=== PATIENT | female | born 1950 | race Caucasian/White ===

== ENCOUNTER 2020-07-08 15:57 | Outpatient (REF) | payer MEDICARE, SELFPAY | END 2020-07-08 15:58 | disposition home or self-care (01) | LOC: HO.LAB 15:57 | PROVIDERS: Visit Provider Internal Medicine | DX: Z20.828 Contact with and (suspected) exposure to other viral communicable diseases (principal) | CPT/HCPCS: C9803; U0003 ==

== ENCOUNTER 2020-08-06 13:14 | Outpatient (REF) | payer MEDICARE, SELFPAY | END 2020-08-06 13:15 | disposition home or self-care (01) | LOC: HO.LAB 13:14 | PROVIDERS: PCP Internal Medicine; Visit Provider Internal Medicine | DX: Z20.822 Contact with and (suspected) exposure to COVID-19 (principal) | CPT/HCPCS: 36415; C9803; U0003 ==

== ENCOUNTER 2020-08-18 13:39 | Outpatient (REF) | payer MEDICARE, SELFPAY | END 2020-08-18 13:40 | disposition home or self-care (01) | LOC: HO.LAB 13:39 | PROVIDERS: Visit Provider Internal Medicine | DX: Z20.822 Contact with and (suspected) exposure to COVID-19 (principal) | CPT/HCPCS: 36415; C9803; U0003 ==

== ENCOUNTER 2020-08-25 10:00 | Outpatient (REF) | payer MEDICARE, SELFPAY | END 2020-08-25 10:01 | disposition home or self-care (01) | LOC: HO.LAB 10:00 | PROVIDERS: Visit Provider Internal Medicine | DX: Z20.822 Contact with and (suspected) exposure to COVID-19 (principal) | CPT/HCPCS: 36415; C9803; U0003; U0005 ==

== ENCOUNTER 2022-03-26 22:42 | Observation (INO) | payer MEDICARE, SELFPAY ==
--- NOTE | ~2022-03-26 | CT_ITS ---
EXAMINATION: CT HEAD WITHOUT CONTRAST (STROKE PROTOCOL) CLINICAL INFORMATION: Stroke protocol. Headache. Trouble with word finding COMPARISON: None TECHNIQUE: Contiguous axial imaging was performed from the skull base to vertex without intravenous administration of contrast. This CT examination was performed using dose optimization techniques as appropriate, variously including the following: *Automated exposure control *Adjustment of mA and/or kV according to patient size (this includes techniques or standardized protocols for targeted exams where dose is matched to indication/reason for exam; i.e. extremities or head) *Use of iterative reconstruction technique DLP: 687 mGy-cm FINDINGS: There is no evidence of acute intracranial hemorrhage or territorial infarction. No abnormal mass effect or midline shift is seen. Lyn to white matter differentiation is well preserved. No extra-axial fluid collections are identified. Patchy subcortical and periventricular white matter low-attenuation changes statistically relate microangiopathic gliosis. Cavernous carotid calcifications. The ventricles are normal in size. The osseous structures and soft tissues are normal. The mastoid air cells and visualized portions of the paranasal sinuses are well-aerated. CT/CT head for stroke IMPRESSION: No acute territorial infarct. No acute intracranial hemorrhage. Moderate white matter small vessel ischemic changes. This critical result was discussed with Dr Valle at 03/26/2022 11:09 PM and it was ascertained that the content and urgency of the report was understood at the time of direct communication.
--- NOTE | ~2022-03-26 | US_ITS ---
EXAMINATION: US EXTRACRANIAL CAROTID DUPLEX, BILATERAL CLINICAL INFORMATION: Headache COMPARISON: None TECHNIQUE: Real-time ultrasound and Doppler techniques (integrating B-mode 2-D vascular images, Doppler spectral analysis and color-flow Doppler imaging) were utilized to interrogate the extracranial carotid arteries, the vertebral arteries and proximal subclavian arteries bilaterally. The degree of stenosis is determined by criteria similar to NASCET. FINDINGS: Right Side: 1. There is mild atherosclerotic plaque seen in the bifurcation/proximal ICA region. 2. The common carotid artery PSV proximally is 136 cm/s and distally 62 cm/s. 3. The proximal internal carotid artery velocities are 63 cm/s systolic and 17 cm/s diastolic. 4. The proximal external carotid artery PSV is 79 cm/s. 5. The vertebral artery shows antegrade flow. 6. The subclavian artery waveforms are normal. Left Side: 1. There is mild atherosclerotic plaque seen in the bifurcation/proximal ICA region. 2. The common carotid artery PSV proximally is 82 cm/s and distally 73 cm/s. 3. The proximal internal carotid artery velocities are 84 cm/s systolic and 25 cm/s diastolic. 4. The proximal external carotid artery PSV is 109 cm/s. 5. The vertebral artery shows antegrade flow. 6. The subclavian artery waveforms are normal. Arrythmia noted. US/US carotid duplex BI IMPRESSION: 1. RIGHT: Minimal, non-hemodynamically significant stenosis of the proximal right internal carotid artery corresponding to a 0-49% stenosis by velocity criteria. 2. LEFT: Minimal, non-hemodynamically significant stenosis of the proximal left internal carotid artery corresponding to a 0-49% stenosis by velocity criteria. 3. Consider cardiology consultation if arrythmia is a new finding.
--- NOTE | ~2022-03-26 | CT_ITS ---
EXAMINATION: CT head/brain wo IV con CLINICAL INFORMATION: Reason for Exam Intractable URBINA COMPARISON: CT head without contrast 03/26/2022 TECHNIQUE: Contiguous axial imaging was performed from the skull base to vertex without intravenous contrast. Sagittal and coronal reformatted images were obtained. This CT examination was performed using dose optimization techniques as appropriate, variously including the following: * Automated exposure control * Adjustment of mA and/or kV according to patient size (this includes techniques or standardized protocols for targeted exams where dose is matched to indication/reason for exam; i.e. extremities or head) Use of iterative reconstruction technique DLP: 657 mGy-cm FINDINGS: No acute osseous or soft tissue abnormality. Left maxillary sinus mucous retention cyst. The mastoid air cells are clear. There is no evidence of acute intracranial hemorrhage or territorial infarction. No abnormal mass effect or midline shift is seen. Lyn to white matter differentiation is well preserved. No extra-axial fluid collections are identified. No hydrocephalus. Proportional prominence of the ventricles and sulcal spaces is consistent with mild volume loss. Patchy periventricular and deep white matter hypoattenuation is consistent with moderate small vessel ischemic changes. CT/CT head/brain wo IV con IMPRESSION: No acute intracranial abnormality including hemorrhage, mass effect, hydrocephalus, or acute territorial edematous infarction.
--- NOTE | 2022-03-26 22:45 | ECG_ITS ---
Test Reason : STROKE Blood Pressure : / mmHG Vent. Rate : 092 BPM Atrial Rate : 092 BPM P-R Int : 170 ms QRS Dur : 086 ms QT Int : 382 ms P-R-T Axes : 051 006 045 degrees QTc Int : 472 ms Normal sinus rhythm Nonspecific ST abnormality Abnormal ECG No previous ECGs available Referred By: Deng Fallon Electronically Signed By:MARCELLUS LOPEZ
[2022-03-26 22:55] VITALS: BP 175/89; PULSE 102; O2SAT 96; BMI 32.5
[2022-03-26 22:57] LABS: Prothrombin Time Whole Bld POC 11.4 sec (11.1-13.5); ~PT, ~INR - Anti Coag Clinic 0.9 (0.9-1.1)
[2022-03-26 22:58] VITALS: BP 170/75; PULSE 96; RESP 16; TEMP 36.7; O2SAT 96
[2022-03-26 23:08] LABS: Glucose, Whole Blood 179 mg/dL (60-115)
[2022-03-26 23:42] LABS: Prothrombin Time 10.9 SEC (10.0-13.1)
[2022-03-26 23:50] LABS: Basophils Percent Auto 0.4 % (0-2); Eosinophils Absolute Auto 0.2 X10*3/uL (0.0-0.4); Hematocrit 37.8 % (37.0-47.0); Hemoglobin 12.5 g/dl (12.0-16.0); Imm Gran Abs Auto 0.02 X10*3/uL (0.00-0.03); Imm Gran Pct Auto 0.2 % (0.0-0.4); Lymphocytes Absolute Auto 2.5 X10*3/uL (1.2-4.9); Lymphocytes Percent Auto 24.8 % (20-40); MANUAL DIFF FLAG NO; Mean Corpuscular HGB Conc 33.1 g/dl (31.0-35.0); Mean Corpuscular Hemoglobin 28.9 pg (27.0-33.0); Mean Corpuscular Volume 87.3 fL (80.0-98.0); Mean Platelet Volume 10.5 fL (9.4-12.3); Monocytes Absolute Auto 1.1 X10*3/uL (0.1-1.2); Monocytes Percent Auto 10.5 % (2-11); Neutrophils Absolute Auto 6.2 x10*3/uL (2.0-8.3); Neutrophils Percent Auto 62.1 % (45-73); Platelet Count 237 X10*3/uL (160-400); Red Blood Count 4.33 X10*6/uL (4.20-5.50); Red Cell Distribution Width 12.9 % (11.0-16.0)
[2022-03-26 23:51] LABS: Alanine Aminotransferase 27 U/L (0-31); Alkaline Phosphatase 73 U/L (39-117); Anion Gap 16 (12-20); Aspartate Amino Transferase 18 U/L (5-31); Bilirubin Direct 0.2 mg/dL (0.0-0.5); Bilirubin Total 0.4 mg/dL (0.0-1.0); Blood Urea Nitrogen 18 mg/dL (9-16); Calcium 9.1 mg/dL (8.4-10.2); Carbon Dioxide 23 mmol/L (22-29); Chloride 102 mmol/L (96-108); Creatinine Clr Calc Pharmacy 64.6; Estimated Glomerular Filt Rate > 60; Glucose Random 190 mg/dL (60-115); Potassium 3.4 mmol/L (3.3-5.1); Sodium 138 mmol/L (135-145); Total Protein 6.8 g/dL (6.5-8.0)
[2022-03-26 23:58] LABS: Partial Thromboplastin Time 21.4 SEC (26.0-36.4)
[2022-03-27] VITALS (7 sets, daily range): BP systolic 147–168; BP diastolic 64–84; PULSE 82–87; RESP 14–18; TEMP 36.6–37; O2SAT 93–96; BMI 34.0
[2022-03-27 00:05] LABS: Stroke Lab Use COMPLETE
--- NOTE | 2022-03-27 00:23 | ED_ITS ---
HPI - Neuro Symptoms/Deficit General Chief Complaint: Stroke Stated Complaint: ? stroke alert Time Seen by Provider: 03/26/22 22:45 Source: patient and EMS Mode of arrival: EMS Limitations: no limitations History of Present Illness HPI Narrative: 72-year-old female who presents emergency department for evaluation of possible stroke. The patient states that she was at a nondenominational event. She states that she ate some food after the event and then drove home. She states that she was driving home at around 21:00 hours while she was driving she developed a left sided dull headache which came on gradually and was 8/10 at its worst. She developed blurred vision in her right eye. She states she had difficulty rita mbering what street she was on and how to get home. She states she recently moved in with her friend and her friend's . She states that when she got home she had difficulty remembering her friends 's name. She states that she was tearful and crying and her friend and her were worried about symptoms and called an ambulance. By the time the patient arrived in the emergency department she states that her memory improved but she still felt like she was having difficulty remembering things. She states that she still had a left-sided headache but the pain was now 2/10. Her blurred vision resolved. The patient was sent directly to the CT for CT scan of the brain. Onset (ago): hour(s) (1.5) Time: 21:00 Last Observed Normal: 21:00 Timing confirmed by: other (Roommate) Location: other (Trouble with memory, blurred vision, confused) History of same: No Severity: moderate Relieving factors: none Exacerbating factors: none Context: gradual onset On Anticoagulants: No Associated symptoms: confusion, headaches and other (Trouble with memory and word-finding) Treatments Prior to Arrival: none Related Data Allergies Allergy/AdvReac Type Severity Reaction Status Date / Time No Known Allergies Allergy Verified 03/26/22 22:45 Review of Systems Review of Systems: Yes all other systems are reviewed and are negative [facility] Past Medical History [facility] Narrative: Past medical history: Diabetes mellitus, hyperlipidemia. Past surgical history: Cholecystectomy. Social history: Patient denies tobacco use. She is a former cigarette smoker and states she stop smoking 10 years prior. She smoked for approximately 20-25 years. She denies alcohol use but states that she did abuse alcohol in the past and staff drinking when she was 44 years old. The patient denies drug use but states she did use crack cocaine in the past as well. Social History Social History Alcohol intake: never Patient Tobacco Use Status: Never used Tobacco Use of substances other than those prescribed or required for medical reasons: No Advance Directives: No Physical Exam Vital Signs: Vital Signs: Last Vital Signs Temp 98.6 F 03/27/22 00:19 Pulse 85 03/27/22 00:19 Resp 17 03/27/22 00:19 BP 147/80 H 03/27/22 00:19 Pulse Ox 96 03/27/22 00:19 O2 Del Method 03/27/22 00:19 BMI result Body Mass Index 32.5 Const: General: cooperative and no acute distress Orientation/consciousne ss: oriented to person and oriented to place Limitations: no limitations HEENT: Head: Yes normal to inspection, Yes normocephalic and Yes atraumatic Ears: external ears normal General nose exam: Normal external nose present Face and sinus: Yes normal facial exam Mouth: Normal oral and palatal mucosa present Throat: Yes posterior oropharynx normal Eyes: General: appearance normal, both eyes and all related structures Pupils: Equal, round and reactive pupils present Neck: Neck: Yes normal visual inspection, Yes no lymphadenopathy, Yes trachea midline and Yes supple Chest: Chest palpation & inspection: normal inspection of the chest and normal palpation of entire chest wall Resp: Effort & Inspection: normal respiratory effort and able to speak in complete sentences Auscultation: clear to auscultation bilaterally Cardio: Rate: regular rate Rhythm: regular rhythm Heart sounds: S1 normal heart sound present, S2 normal heart sound present and no murmurs GI: Inspection: Yes normal to inspection Palpation (GI): Soft to palpation, nontender and no guarding Auscultation: normal bowel sounds : General: Yes no CVA tenderness Back/Spine/Pelvis: Back: no CVA tenderness Skin: General skin exam: no rashes or lesions noted Neuro: General: oriented to person and oriented to place Cranial nerves: Yes CN's II-XII intact bilaterally and Yes Equal, round and reactive pupils present Cognition (Neuro): normal cognition Motor exam (neuro): 5/5 motor strength present throughout Extrem: General: Yes normal to inspection Psych: Appearance: grossly normal Speech and movement: Normal speech and movement present Affect: normal affect Attitude: cooperative Thought process: Normal thought process present Thought content: Normal thought content present Course Course Course Narrative: 72-year-old female who presents emergency department for evaluation of gradual onset left-sided headache with difficulty with word finding, confusion and difficulty with memory. She also had blurred vision in the right eye. The patient's symptoms started approximately will 21:00 hours and by the time she was evaluated in the emergency department her symptoms had almost completely resolved except for her left-sided headache. The patient's vital signs did reveal an elevated blood pressure of 170/75 otherwise were unremarkable. Her exam was unremarkable with a normal neurologic exam in an NIH stroke scale of 0. The patient had a CT scan of the brain without IV contrast which revealed no acute findings. Patient's laboratory evaluation not reveal any significant abnormalities. Patient's 12 EKG revealed a normal sinus rhythm. The symptoms are concerning for possible stroke versus TIA. Patient was treated with aspirin 162 mg to chew. Given that this is the patient's 1st presentation for these types of symptoms, I believe that she needs to be admitted for a stroke workup. I will discuss the patient's presentation with the covering hospitalist. 0048: I did speak to the patient's daughter, Elizabeth who can be reached at . She states that her mother is been having difficulty with her memory over the past 2 years and this is getting worse. Patient is repeating herself and has difficulty remembering things such as she is going to go to [place] this weekend. The daughter is concerned that the patient is developing memory deficits and may have some form of dementia. 0111: I did discuss the patient's presentation with the covering hospitalist, Dr. Kaye. After this discussion I did check patient's interocular pressures and right eye was 13 a left time of his 11 which is normal. I also added an ESR to the patient's blood work. Patient will be admitted to the hospital service for further management. MDM - Neuro Symptoms/Deficit Lab Data Result diagrams: 03/26/22 23:45 03/26/22 23:30 Labs: Lab Results 03/26/22 03/26/22 03/26/22 Range/Units 22:52 23:04 23:30 WBC (4.8-10.8) X10*3/uL RBC (4.20-5.50) X10*6/uL Hgb (12.0-16.0) g/dl Hct (37.0-47.0) % MCV (80.0-98.0) fL MCH (27.0-33.0) pg MCHC (31.0-35.0) g/dl RDW (11.0-16.0) % Plt Count (160-400) X10*3/uL MPV (9.4-12.3) fL Immature Gran % (Auto) (0.0-0.4) % Neut % (Auto) (45-73) % Lymph % (Auto) (20-40) % [place] % (Auto) (2-11) % Eos % (Auto) (0-4) % Baso % (Auto) (0-2) % Lymph # (Auto) (1.2-4.9) X10*3/uL [place] # (Auto) (0.1-1.2) X10*3/uL Eos # (Auto) (0.0-0.4) X10*3/uL Baso # (Auto) (0.0-0.2) X10*3/uL Abs Immat Gran (auto) (0.00-0.03) X10*3/uL Absolute Neuts (auto) (2.0-8.3) x10*3/uL Absolute Nucleated RBC (0.0-0.012) X10*3/uL Nucleated RBC % (auto) (0.0-0.2) /100WBC PT 10.9 (10.0-13.1) SEC Whole Blood PT 11.4 (11.1-13.5) sec INR 1.0 (0.9-1.1) Whole Blood INR 0.9 (0.9-1.1) APTT 21.4 L (26.0-36.4) SEC Sodium (135-145) mmol/L Potassium (3.3-5.1) mmol/L Chloride (96-108) mmol/L Carbon Dioxide (22-29) mmol/L Anion Gap (12-20) BUN (9-16) mg/dL Creatinine (0.5-1.4) mg/dL Estim Creat Clear Calc Estimated GFR POC Glucose 179 H (60-115) mg/dL Random Glucose (60-115) mg/dL Calcium (8.4-10.2) mg/dL Total Bilirubin (0.0-1.0) mg/dL Direct Bilirubin (0.0-0.5) mg/dL AST (5-31) U/L ALT (0-31) U/L Alkaline Phosphatase (39-117) U/L Troponin I High Sens (<3.5-17.0) ng/L Total Protein (6.5-8.0) g/dL Albumin (3.5-5.0) g/dL 03/26/22 03/26/22 03/26/22 Range/Units 23:30 23:30 23:45 WBC 10.0 (4.8-10.8) X10*3/uL RBC 4.33 (4.20-5.50) X10*6/uL Hgb 12.5 (12.0-16.0) g/dl Hct 37.8 (37.0-47.0) % MCV 87.3 (80.0-98.0) fL MCH 28.9 (27.0-33.0) pg MCHC 33.1 (31.0-35.0) g/dl RDW 12.9 (11.0-16.0) % Plt Count 237 (160-400) X10*3/uL MPV 10.5 (9.4-12.3) fL Immature Gran % (Auto) 0.2 (0.0-0.4) % Neut % (Auto) 62.1 (45-73) % Lymph % (Auto) 24.8 (20-40) % [place] % (Auto) 10.5 (2-11) % Eos % (Auto) 2.0 (0-4) % Baso % (Auto) 0.4 (0-2) % Lymph # (Auto) 2.5 (1.2-4.9) X10*3/uL [place] # (Auto) 1.1 (0.1-1.2) X10*3/uL Eos # (Auto) 0.2 (0.0-0.4) X10*3/uL Baso # (Auto) 0.0 (0.0-0.2) X10*3/uL Abs Immat Gran (auto) 0.02 (0.00-0.03) X10*3/uL Absolute Neuts (auto) 6.2 (2.0-8.3) x10*3/uL Absolute Nucleated RBC 0.000 (0.0-0.012) X10*3/uL Nucleated RBC % (auto) 0.0 (0.0-0.2) /100WBC PT (10.0-13.1) SEC Whole Blood PT (11.1-13.5) sec INR (0.9-1.1) Whole Blood INR (0.9-1.1) APTT (26.0-36.4) SEC Sodium 138 (135-145) mmol/L Potassium 3.4 (3.3-5.1) mmol/L Chloride 102 (96-108) mmol/L Carbon Dioxide 23 (22-29) mmol/L Anion Gap 16 (12-20) BUN 18 H (9-16) mg/dL Creatinine 0.86 (0.5-1.4) mg/dL Estim Creat Clear Calc 64.6 Estimated GFR > 60 POC Glucose (60-115) mg/dL Random Glucose 190 H (60-115) mg/dL Calcium 9.1 (8.4-10.2) mg/dL Total Bilirubin 0.4 (0.0-1.0) mg/dL Direct Bilirubin 0.2 (0.0-0.5) mg/dL AST 18 (5-31) U/L ALT 27 (0-31) U/L Alkaline Phosphatase 73 (39-117) U/L Troponin I High Sens 4.0 (<3.5-17.0) ng/L Total Protein 6.8 (6.5-8.0) g/dL Albumin 4.0 (3.5-5.0) g/dL NIH Stroke Scale Internal: Initial- Upon Arrival Level of Consciousness: Alert Level of Consciousness Questions: Answers both questions correctly Level of Consciousness Commands: Performs both tasks correctly Best Gaze: Normal Visual: No visual loss Facial Palsy: Normal Motor Arm (Right): No drift Motor Arm (Left): No drift Motor Leg (Right): No drift Motor Leg (Left): No drift Limb Ataxia: Absent Sensory: Normal Best Language: No aphasia Dysarthia: Normal Extinction and Inattention: No abnormality Score: 0 Critical Care Time Critical Care Time Critical Care Time: Yes Total Critical Care Time: 35 Attestation: Critical Care: The patient was critically ill with a high probability of imminent or life threatening deterioration. I spent greater than 30 minutes of discontinuous time evaluating the patient,delivering critical care at the bedside, discussing and evaluating pertinent data with consultants. Critical care time does not include time spent performing separately billable procedures or teaching. Total time spent performing critical care was 35 minutes. Discharge Plan Discharge Clinical Impression: Headache, Blurred vision, Acute confusion, Word finding difficulty Patient Disposition: Admitted As Inpatient
[2022-03-27] MEDS: Aspirin 81 MG TAB.CHEW 162 MG PO (00:44)
[2022-03-27] MEDS: Acetaminophen 325 MG TABLET 975 MG PO (01:10)
[2022-03-27 01:38] LABS: Erythrocyte Sedimentation Rate 7 MM/HR (0-20)
[2022-03-27 02:48] LABS: COVID-19 Test Negative (Negative)
[2022-03-27] MEDS: ondansetron HCL 4 MG/2 ML VIAL IVPUSH (02:51)
[2022-03-27] MEDS: Morphine Sulfate 2 MG/ML CARTRIDGE IVPUSH (02:51)
[2022-03-27] MEDS: Morphine Sulfate 4 MG/ML CARTRIDGE IVPUSH (04:08)
--- NOTE | 2022-03-27 04:11 | PC.NURSE ---
Pt complaining of 10/10 pain in the frontal area of the head. 2mg of morphine did not help. Attempted cool compresses and decreasing light stimulation with no effect. Provider aware and ordered 4 mg morphine. Morphine administered. Will continue to monitor.
--- NOTE | 2022-03-27 06:08 | P.HPHOSP_ITS ---
History of Present Illness Date of Service: 03/27/22 Chief Complaint: headache 72-year-old female with a past medical history of hypertension, hyperlipidemia, diabetes presented to the hospital with a chief complaint of headache/blurry vision. Reported headache on the right side of the head, and blurry vision the right eye. Symptoms resolved after she came to the ER. Denies any numbness tingling or focal weakness. Denies any falls or trauma. Per family patient has become very forgetful. Denies any signs of infection, denies any fever chills cough or sputum production, GI symptoms. Review of all other systems is negative except mentioned above ER course: Per ER team patient's exam was nonfocal, symptoms resolved, CT head showed no acute findings, question TIA; admitted for further management [facility] Social History Alcohol intake: never Patient Tobacco Use Status: Never used Tobacco Use of substances other than those prescribed or required for medical reasons: No Advance Directives: No Meds Allergies Allergy/AdvReac Type Severity Reaction Status Date / Time No Known Allergies Allergy Verified 03/26/22 22:45 Active Medications: Current Medications Pharmacy Consult (Consult Rx Perform Med Rec) 1 each MISCELLANE ONCE PRN PRN Reason: Consult order Physical Exam Vital Signs and Narrative: Vital Signs: Last Vital Signs Temp 98.0 F 03/27/22 04:00 Pulse 82 03/27/22 04:06 Resp 16 03/27/22 04:00 BP 165/77 H 03/27/22 04:06 Pulse Ox 93 03/27/22 04:00 O2 Del Method 03/27/22 04:00 BMI result Body Mass Index 32.5 Gen: Appears be in no acute distress HEENT: NCAT, Moist mucosa. Pulmonary: Vesicular breath sounds, fair air entry CVS: Normal S1-S2 Abdomen: BS+, Soft, Nontender Extremities: Warm well perfused Neuro: Alert and awake. Grossly nonfocal Results Labs CBC and Chem 7: 03/26/22 23:45 03/26/22 23:30 Labs: Laboratory Results - last 24 hr 03/26/22 03/26/22 03/26/22 22:52 23:04 23:30 MCV MCH MCHC RDW Plt Count MPV Immature Gran % (Auto) Neut % (Auto) Lymph % (Auto) [place] % (Auto) Eos % (Auto) Baso % (Auto) Lymph # (Auto) [place] # (Auto) Eos # (Auto) Baso # (Auto) Abs Immat Gran (auto) Absolute Neuts (auto) Absolute Nucleated RBC Nucleated RBC % (auto) ESR PT 10.9 Whole Blood PT 11.4 INR 1.0 Whole Blood INR 0.9 APTT 21.4 L Anion Gap Estim Creat Clear Calc Estimated GFR POC Glucose 179 H Random Glucose Calcium Total Bilirubin Direct Bilirubin AST ALT Alkaline Phosphatase Total Protein Albumin COVID-19 ([facility]) COVID-19 Clin Com 03/26/22 03/26/22 03/26/22 23:30 23:45 23:45 MCV 87.3 MCH 28.9 MCHC 33.1 RDW 12.9 Plt Count 237 MPV 10.5 Immature Gran % (Auto) 0.2 Neut % (Auto) 62.1 Lymph % (Auto) 24.8 [place] % (Auto) 10.5 Eos % (Auto) 2.0 Baso % (Auto) 0.4 Lymph # (Auto) 2.5 [place] # (Auto) 1.1 Eos # (Auto) 0.2 Baso # (Auto) 0.0 Abs Immat Gran (auto) 0.02 Absolute Neuts (auto) 6.2 Absolute Nucleated RBC 0.000 Nucleated RBC % (auto) 0.0 ESR 7 PT Whole Blood PT INR Whole Blood INR APTT Anion Gap 16 Estim Creat Clear Calc 64.6 Estimated GFR > 60 POC Glucose Random Glucose 190 H Calcium 9.1 Total Bilirubin 0.4 Direct Bilirubin 0.2 AST 18 ALT 27 Alkaline Phosphatase 73 Total Protein 6.8 Albumin 4.0 COVID-19 ([facility]) COVID-19 Clin Com 03/27/22 02:24 MCV MCH MCHC RDW Plt Count MPV Immature Gran % (Auto) Neut % (Auto) Lymph % (Auto) [place] % (Auto) Eos % (Auto) Baso % (Auto) Lymph # (Auto) [place] # (Auto) Eos # (Auto) Baso # (Auto) Abs Immat Gran (auto) Absolute Neuts (auto) Absolute Nucleated RBC Nucleated RBC % (auto) ESR PT Whole Blood PT INR Whole Blood INR APTT Anion Gap Estim Creat Clear Calc Estimated GFR POC Glucose Random Glucose Calcium Total Bilirubin Direct Bilirubin AST ALT Alkaline Phosphatase Total Protein Albumin COVID-19 ([facility]) Negative COVID-19 Clin Com See Note Imaging Radiologist's Impressions: Impressions Head CT 03/26/22 22:52 IMPRESSION: No acute territorial infarct. No acute intracranial hemorrhage. Moderate white matter small vessel ischemic changes. This critical result was discussed with Dr Valle at 03/26/2022 11:09 PM and it was ascertained that the content and urgency of the report was understood at the time of direct communication. Assessment and Plan (1) Headache: Status: Acute Plan 72-year-old female with a past medical history of hypertension, hyperlipidemia, diabetes presented to the hospital today with a chief complaint of headache/blurry vision. Admitted for following Headache/blurry vision in the right eye: Symptoms resolved. Per ER attending vision normal, Eye exam and pressures in the eye are within the normal limits. ESR within normal limits Grossly nonfocal CT head showed no acute findings Family reports patient is lately forgetful Question TIA Neurology consult History of hypertension: Patient on lisinopril. Monitor vitals and resume lisinopril eventually. History of diabetes: Insulin sliding scale DVT prophylaxis: SCD boots Code status: Full code Quality Stroke Does the patient have a stroke diagnosis?: No VTE Prior VTE?: No VTE Risk Level:: Medical - moderate - high VTE Device Contraindication: Treatment Not Indicated VTE Drug Contraindication: N/A - Med Ordered
[2022-03-27] MEDS: Ketorolac Tromethamine 15 MG/ML VIAL IVPUSH (06:24)
[2022-03-27] MEDS: 0.9 % Sodium Chloride 1,000 ML 100 ML IVCONT (06:25)
[2022-03-27 07:25] LABS: Glucose, Whole Blood 209 mg/dL (60-115)
[2022-03-27] MEDS: Insulin Lispro 100 UNIT/ML 3 ML VIAL SUBCUT ×2 (07:32→20:25)
[2022-03-27] MEDS: Acetaminophen 325 MG TABLET 650 MG PO ×2 (07:37→13:20)
--- NOTE | 2022-03-27 08:05 | PHA.MEDREC ---
Pharmacy Consult ? Medication Reconciliation Pharmacy has completed the medication reconciliation. Despite claim history sig on clonazepam stating 1 mg PO three times daily PRN, patient claims to take 2 at bedtime instead .
[2022-03-27] MEDS: Atorvastatin Calcium 20 MG TABLET PO (08:49)
[2022-03-27] MEDS: Omeprazole 40 MG CAPSULE.DR PO ×2 (08:49→18:21)
[2022-03-27] MEDS: Losartan Potassium 50 MG TABLET 100 MG PO (08:49)
--- NOTE | 2022-03-27 10:42 | MHC.STROKE ---
03/26/22 2238 EMS [facility]#1 PRE-NOTIFIED STROKE ALERT , ARRIVED AT 2242 SEEN BY ED PROVIDER AND STROKE PROTOCOL ACTIVATED, C/O HE, RIGHT EYE BLURRED VISION, SOME CONFUSION AND DIFFICULTY WITH WORD FINDING. DIRECT TO CT ON EMS STRETCHER. CT NEG FOR BLEED. NIHSS = 0, EXCLUDED FROM TPA-ALTEPLASE BASED ON THIS SCORE. SEE ED PROVIDER NOTE. PMH: HTN,HLD, DM. OBESITY, VITAL STABLE. PASSED NURSING SWALLOW SCREEN. I WILL CONTINUE TO FOLLOW AND I AM AVAILABLE ON [employer] PART OF THE STROKE TEAM. PLEASE INITIATE STROKE EDUCATION NECESSARY. ALSO CONTINUE ANTIPLATELET DAILY.
[2022-03-27] MEDS: clonazePAM 1 MG TABLET 2 MG PO (12:14)
[2022-03-27 12:40] LABS: Glucose, Whole Blood 138 mg/dL (60-115)
--- NOTE | 2022-03-27 14:12 | PM.EVENT ---
Event Note Date of Service: 03/27/22 Event Note: 72-year-old female patient with past medical history of hypertension, diabetes mellitus and hyperlipidemia admitted to [facility] due to right-sided headache and blurry vision, all symptoms resolved in ED CT head showed No acute territorial infarct. No acute intracranial hemorrhage.,Moderate white matter small vessel ischemic changes. Neuro examination is benign, as per patient's daughter she has been forgetful lately this family history of dementia therefore family is very concerned and requesting further workup, patient developed headache while in ER localized to left side with radiation towards right without associated visual symptoms no weakness no numbness no recurrent blurry vision, it seems most likely patient has muscula/tensionr headache , no history of migraine headaches no aura, Exam benign Headache likely musculoskeletal will treat with as needed Tylenol/ Fioricet, blurry vision resolved, further workup as per Neurology will order carotid ultrasound Early dementia likely vascular strongly recommended good blood pressure and diabetic control, recommend daily exercise low-calorie diet, will check B12 folate and TSH. Hypertension Will resume home medication hydrochlorothiazide and losartan Hyperlipidemia on simvastatin 40 mg at home, will place on Lipitor 20 mg daily Diabetes mellitus on metformin 1000 mg by mouth b.i.d. will hold metformin and place on insulin sliding scale monitor blood sugars closely.
[2022-03-27] MEDS: 0.9 % Sodium Chloride Flush 3 ML SYRINGE IVFLUSH ×2 (18:21→23:45)
[2022-03-27] MEDS: Butalb/Acetamin/Caff 50/325/40 TABLET 1 TAB PO (18:24)
[2022-03-27 18:34] LABS: Glucose, Whole Blood 119 mg/dL (60-115)
[2022-03-27 20:30] LABS: Glucose, Whole Blood 196 mg/dL (60-115)
[2022-03-28] VITALS (7 sets, daily range): BP systolic 125–185; BP diastolic 72–93; PULSE 73–84; RESP 16–20; TEMP 36.2–37.3; O2SAT 93–98
[2022-03-28] MEDS: Butalb/Acetamin/Caff 50/325/40 TABLET 1 TAB PO (00:29)
--- NOTE | 2022-03-28 02:15 | PC.NURSE ---
P. Headache I. Pt c/o headache at 1230, fiorcet given per SEP orders with little relief. Dr Kaye notified and placed new order for oxycodone 5mg PO q6 PRN. med given pt stated she felt relief with only a tiny bit of a headache felt. E. Pt resting in bed quietly with eyes closed. Will continue to monitor.
[2022-03-28] MEDS: oxyCODONE HCl Immed Release 5 MG TABLET PO (02:33)
--- NOTE | 2022-03-28 03:45 | MHC.PIE ---
P. Elevated BP I. BP currently 185/93. E. Dr Kaye updated, no new orders at this time.
[2022-03-28] MEDS: Omeprazole 40 MG CAPSULE.DR PO ×2 (06:31→16:53)
[2022-03-28] MEDS: Losartan Potassium 50 MG TABLET 100 MG PO (06:37)
[2022-03-28] MEDS: hydroCHLOROthiazide 25 MG TABLET PO (06:37)
--- NOTE | 2022-03-28 06:39 | MHC.PIE ---
P. Elevated BP I. BP was 201/88, pt states headache better. Dr Kaye notified. states to give 0900 BP meds now. E. will update next RN.
[2022-03-28 06:47] LABS: MANUAL DIFF FLAG NO
[2022-03-28 07:01] LABS: Basophils Percent Auto 0.3 % (0-2); Eosinophils Absolute Auto 0.1 X10*3/uL (0.0-0.4); Eosinophils Percent Auto 0.9 % (0-4); Hematocrit 34.7 % (37.0-47.0); Hemoglobin 11.6 g/dl (12.0-16.0); Imm Gran Abs Auto 0.04 X10*3/uL (0.00-0.03); Imm Gran Pct Auto 0.5 % (0.0-0.4); Lymphocytes Absolute Auto 2.2 X10*3/uL (1.2-4.9); Lymphocytes Percent Auto 29.3 % (20-40); Mean Corpuscular HGB Conc 33.4 g/dl (31.0-35.0); Mean Corpuscular Hemoglobin 28.7 pg (27.0-33.0); Mean Corpuscular Volume 85.9 fL (80.0-98.0); Mean Platelet Volume 10.8 fL (9.4-12.3); Monocytes Absolute Auto 0.7 X10*3/uL (0.1-1.2); Monocytes Percent Auto 9.5 % (2-11); Neutrophils Absolute Auto 4.6 x10*3/uL (2.0-8.3); Neutrophils Percent Auto 59.5 % (45-73); Platelet Count 219 X10*3/uL (160-400); Red Blood Count 4.04 X10*6/uL (4.20-5.50); Red Cell Distribution Width 12.8 % (11.0-16.0); White Blood Count 7.7 X10*3/uL (4.8-10.8)
[2022-03-28 07:26] LABS: Anion Gap 16 (12-20); Blood Urea Nitrogen 10 mg/dL (9-16); Calcium 8.8 mg/dL (8.4-10.2); Carbon Dioxide 23 mmol/L (22-29); Chloride 102 mmol/L (96-108); Creatinine Clr Calc Pharmacy 82.3; Estimated Glomerular Filt Rate > 60; Glucose Random 171 mg/dL (60-115); Potassium 3.7 mmol/L (3.3-5.1); Sodium 137 mmol/L (135-145)
[2022-03-28 07:28] LABS: Cholesterol 152 mg/dL; HDL Cholesterol 39 mg/dL; LDL Cholesterol Calculated 89 mg/dl; Triglycerides 121 mg/dL
[2022-03-28 08:15] LABS: Glucose, Whole Blood 157 mg/dL (60-115)
[2022-03-28] MEDS: Insulin Lispro 100 UNIT/ML 3 ML VIAL SUBCUT ×3 (08:26→20:11)
[2022-03-28] MEDS: Atorvastatin Calcium 20 MG TABLET PO (08:26)
[2022-03-28] MEDS: 0.9 % Sodium Chloride Flush 3 ML SYRINGE IVFLUSH ×3 (08:26→20:11)
[2022-03-28 12:16] LABS: Glucose, Whole Blood 173 mg/dL (60-115)
--- NOTE | 2022-03-28 12:23 | MHC.CM.PN ---
met with pt who lives with friends ,pt is independent ,drives ,is covid vax x 4 dc plan home no sercveis
--- NOTE | 2022-03-28 15:26 | P.PNIM_ITS ---
Subjective Subjective Date of Service: 03/28/22 Interval History: No acute issues overnight. No further symptoms Review of Systems denies chest pain Denies shortness of breath Denies nausea vomiting diarrhea Denies fever chills Physical Exam Vital Signs: Vital Signs: Last Vital Signs Temp 97.3 F 03/28/22 15:08 Pulse 84 03/28/22 15:08 Resp 18 03/28/22 15:08 BP 125/82 03/28/22 15:08 Pulse Ox 94 03/28/22 15:08 O2 Del Method 03/28/22 15:08 BMI result Body Mass Index 34.0 Const: Other: no acute distress Resp: Other: clear to auscultation bilaterally no rales rhonchi or wheezes Cardio: Other: no S4; positive S1-S2; no S3 murmurs rubs or gallops GI: Other: soft nontender nondistended normoactive bowel sounds Neuro: Other: cranial nerves 2-12 grossly intact as tested. Motor is 5/5 all extremities. Sensation is intact. Cognition appropriate Extrem: Other: no edema bilateral Objective Data Active Medications Acetaminophen (Acetaminophen 325 Mg Tablet) 650 mg PO Q6H PRN PRN Reason: Pain, Mild (Pain Scale 1-3) Last Admin: 03/27/22 13:20 Dose: 650 mg Documented By: DENIA Acetaminophen/Butalbital/Caffeine (Butalb/Acetamin/Caff 50/325/40 Tablet) 1 tab PO Q4H PRN PRN Reason: Headache Last Admin: 03/28/22 00:29 Dose: 1 tab Documented By: ZHAO Atorvastatin Calcium (Atorvastatin Calcium 20 Mg Tablet) 20 mg PO DAILY [facility] Last Admin: 03/28/22 08:26 Dose: 20 mg Documented By: WALT Clonazepam (Clonazepam 1 Mg Tablet) 2 mg PO BEDTIME PRN PRN Reason: Anxiety Last Admin: 03/27/22 12:14 Dose: 2 mg Documented By: DENIA Dextrose (Dextrose 50 % 25 Gm/50 Ml Syringe) 25 gm IVPUSH Q15M PRN; Protocol PRN Reason: per Hypoglycemia Standing Ord. Glucose (Glucose Gel 15 Gm Gel..Gram.) 15 gm PO Q15M PRN; Protocol PRN Reason: per Hypoglycemia Standing Ord. Hydrochlorothiazide (Hydrochlorothiazide 25 Mg Tablet) 25 mg PO DAILY [facility]; Protocol Last Admin: 03/28/22 06:37 Dose: 25 mg Documented By: ZHAO Insulin Human Lispro (Insulin Lispro 100 Unit/Ml 3 Ml Vial) 0 unit SUBCUT Q IDACHS [facility]; Protocol Last Admin: 03/28/22 12:40 Dose: 2 unit Documented By: WALT Losartan Potassium (Losartan Potassium 50 Mg Tablet) 100 mg PO DAILY [facility]; Protocol Last Admin: 03/28/22 06:37 Dose: 100 mg Documented By: ZHAO Melatonin (Melatonin 3 Mg Tablet) 6 mg PO BEDTIME PRN PRN Reason: Insomnia Omeprazole (Omeprazole 40 Mg Capsule.Dr) 40 mg PO BID@0630,1630 [facility] Last Admin: 03/28/22 06:31 Dose: 40 mg Documented By: ZHAO Oxycodone HCl (Oxycodone Hcl Immed Release 5 Mg Tablet) 5 mg PO Q6H PRN PRN Reason: Breakthrough Pain Last Admin: 03/28/22 02:33 Dose: 5 mg Documented By: ZHAO Pharmacy Consult (Consult Rx Perform Med Rec) 1 each MISCELLANE ONCE PRN PRN Reason: Consult order Senna (Sennosides 8.6 Mg Tablet) 17.2 mg PO BEDTIME PRN PRN Reason: Constipation Sodium Chloride (0.9 % Sodium Chloride Flush 3 Ml Syringe) 3 ml IVFLUSH QSHIFT [facility] Last Admin: 03/28/22 08:26 Dose: 3 ml Documented By: WALT Labs CBC & Chem 7: 03/28/22 06:26 03/28/22 06:26 Labs: Laboratory Results - last 24 hr 03/27/22 03/27/22 03/28/22 18:28 20:12 06:26 MCV 85.9 MCH 28.7 MCHC 33.4 RDW 12.8 Plt Count 219 MPV 10.8 Immature Gran % (Auto) 0.5 H Neut % (Auto) 59.5 Lymph % (Auto) 29.3 [place] % (Auto) 9.5 Eos % (Auto) 0.9 Baso % (Auto) 0.3 Lymph # (Auto) 2.2 [place] # (Auto) 0.7 Eos # (Auto) 0.1 Baso # (Auto) 0.0 Abs Immat Gran (auto) 0.04 H Absolute Neuts (auto) 4.6 Absolute Nucleated RBC 0.000 Nucleated RBC % (auto) 0.0 Anion Gap Estim Creat Clear Calc Estimated GFR POC Glucose 119 H 196 H Random Glucose Calcium Triglycerides Cholesterol LDL Cholesterol, Calc HDL Cholesterol 03/28/22 03/28/22 03/28/22 06:26 06:26 07:33 MCV MCH MCHC RDW Plt Count MPV Immature Gran % (Auto) Neut % (Auto) Lymph % (Auto) [place] % (Auto) Eos % (Auto) Baso % (Auto) Lymph # (Auto) [place] # (Auto) Eos # (Auto) Baso # (Auto) Abs Immat Gran (auto) Absolute Neuts (auto) Absolute Nucleated RBC Nucleated RBC % (auto) Anion Gap 16 Estim Creat Clear Calc 82.3 Estimated GFR > 60 POC Glucose 157 H Random Glucose 171 H Calcium 8.8 Triglycerides 121 Cholesterol 152 LDL Cholesterol, Calc 89 HDL Cholesterol 39 03/28/22 11:30 MCV MCH MCHC RDW Plt Count MPV Immature Gran % (Auto) Neut % (Auto) Lymph % (Auto) [place] % (Auto) Eos % (Auto) Baso % (Auto) Lymph # (Auto) [place] # (Auto) Eos # (Auto) Baso # (Auto) Abs Immat Gran (auto) Absolute Neuts (auto) Absolute Nucleated RBC Nucleated RBC % (auto) Anion Gap Estim Creat Clear Calc Estimated GFR POC Glucose 173 H Random Glucose Calcium Triglycerides Cholesterol LDL Cholesterol, Calc HDL Cholesterol Assessment and Plan (1) Headache: Status: Acute (2) HTN (hypertension): Status: Acute (3) DMII (diabetes mellitus, type 2): Status: Acute Plan 72-year-old female with a past medical history of hypertension, hyperlipidemia, diabetes presented to the hospital today with a chief complaint of headache/visual changes 1. Headache with visual changes( symptoms resolved) - workup thus far negative - discussed with Neurology; will observe overnight if further symptoms will get MRI in a.m. - likely complex migraine 2. Hypertension? - acceptable control on current therapies - adjust as indicated 3.DMII -acceptable control -lispro correctional scale Full Code Lovenox will require ongoing hospitalization to complete workup /continue telemetry for likely complex migraine Quality Stroke Does the patient have a stroke diagnosis?: No VTE Prior VTE?: No VTE Risk Level:: Medical - moderate - high VTE Device Contraindication: Treatment Not Indicated VTE Drug Contraindication: N/A - Med Ordered
[2022-03-28 16:04] LABS: Glucose, Whole Blood 139 mg/dL (60-115)
[2022-03-28 19:50] LABS: Glucose, Whole Blood 211 mg/dL (60-115)
[2022-03-28] MEDS: clonazePAM 1 MG TABLET 2 MG PO (20:17)
[2022-03-29] VITALS (7 sets, daily range): BP systolic 124–178; BP diastolic 64–84; PULSE 18–85; RESP 16–20; TEMP 36.4–37.4; O2SAT 96–97
[2022-03-29] MEDS: Omeprazole 40 MG CAPSULE.DR PO ×2 (06:31→17:23)
[2022-03-29 06:37] LABS: MANUAL DIFF FLAG NO
[2022-03-29 06:53] LABS: Basophils Percent Auto 0.4 % (0-2); Eosinophils Absolute Auto 0.3 X10*3/uL (0.0-0.4); Eosinophils Percent Auto 2.7 % (0-4); Hematocrit 39.4 % (37.0-47.0); Imm Gran Abs Auto 0.02 X10*3/uL (0.00-0.03); Imm Gran Pct Auto 0.2 % (0.0-0.4); Lymphocytes Absolute Auto 3.3 X10*3/uL (1.2-4.9); Lymphocytes Percent Auto 34.8 % (20-40); Mean Corpuscular Hemoglobin 28.7 pg (27.0-33.0); Mean Platelet Volume 10.5 fL (9.4-12.3); Monocytes Percent Auto 10.5 % (2-11); Neutrophils Absolute Auto 4.8 x10*3/uL (2.0-8.3); Neutrophils Percent Auto 51.4 % (45-73); Platelet Count 242 X10*3/uL (160-400); Red Blood Count 4.53 X10*6/uL (4.20-5.50); Red Cell Distribution Width 13.1 % (11.0-16.0); White Blood Count 9.4 X10*3/uL (4.8-10.8)
[2022-03-29 06:54] LABS: Alanine Aminotransferase 26 U/L (0-31); Albumin Level 4.1 g/dL (3.5-5.0); Alkaline Phosphatase 70 U/L (39-117); Anion Gap 18 (12-20); Aspartate Amino Transferase 18 U/L (5-31); Bilirubin Total 0.4 mg/dL (0.0-1.0); Blood Urea Nitrogen 11 mg/dL (9-16); Calcium 9.4 mg/dL (8.4-10.2); Carbon Dioxide 25 mmol/L (22-29); Chloride 101 mmol/L (96-108); Creatinine Clr Calc Pharmacy 77.8; Estimated Glomerular Filt Rate > 60; Glucose Fasting 158 mg/dL (60-99); Sodium 140 mmol/L (135-145)
[2022-03-29 07:39] LABS: Glucose, Whole Blood 167 mg/dL (60-115)
[2022-03-29] MEDS: Butalb/Acetamin/Caff 50/325/40 TABLET 1 TAB PO (07:49)
[2022-03-29] MEDS: Atorvastatin Calcium 20 MG TABLET PO (07:54)
[2022-03-29] MEDS: Losartan Potassium 50 MG TABLET 100 MG PO (07:54)
[2022-03-29] MEDS: hydroCHLOROthiazide 25 MG TABLET PO (07:54)
[2022-03-29] MEDS: 0.9 % Sodium Chloride Flush 3 ML SYRINGE IVFLUSH ×3 (07:55→20:49)
[2022-03-29] MEDS: amLODIPine Besylate 5 MG TABLET PO (08:39)
[2022-03-29] MEDS: Morphine Sulfate 2 MG/ML CARTRIDGE IVPUSH (08:55)
[2022-03-29] MEDS: clonazePAM 1 MG TABLET 2 MG PO ×2 (10:44→20:48)
[2022-03-29 11:48] LABS: Glucose, Whole Blood 232 mg/dL (60-115)
[2022-03-29] MEDS: Insulin Lispro 100 UNIT/ML 3 ML VIAL SUBCUT ×2 (12:05→17:24)
--- NOTE | 2022-03-29 12:20 | HO.PM.IMPN ---
Subjective Subjective Date of Service: 03/29/22 Interval History: severe left temporal headache this a.m. without visual disturbance Review of Systems denies chest pain Denies shortness of breath Denies nausea vomiting diarrhea Denies fever chills Physical Exam Vital Signs: Vital Signs: Last Vital Signs Temp 97.6 F 03/29/22 11:39 Pulse 81 03/29/22 11:39 Resp 16 03/29/22 11:39 BP 142/72 H 03/29/22 11:39 Pulse Ox 96 03/29/22 11:39 O2 Del Method 03/29/22 11:39 BMI result Body Mass Index 34.0 Const: Other: no acute distress Resp: Other: clear to auscultation bilaterally no rales rhonchi or wheezes Cardio: Other: no S4; positive S1-S2; no S3 murmurs rubs or gallops GI: Other: soft nontender nondistended normoactive bowel sounds Neuro: Other: cranial nerves 2-12 grossly intact as tested. Motor is 5/5 all extremities. Sensation is intact. Cognition appropriate Extrem: Other: no edema bilateral Objective Data Active Medications Acetaminophen (Acetaminophen 325 Mg Tablet) 650 mg PO Q6H PRN PRN Reason: Pain, Mild (Pain Scale 1-3) Last Admin: 03/27/22 13:20 Dose: 650 mg Documented By: DENIA Acetaminophen/Butalbital/Caffeine (Butalb/Acetamin/Caff 50/325/40 Tablet) 1 tab PO Q4H PRN PRN Reason: Headache Last Admin: 03/29/22 07:49 Dose: 1 tab Documented By: BREANNA Amlodipine Besylate (Amlodipine Besylate 5 Mg Tablet) 5 mg PO DAILY [facility]; Protocol Last Admin: 03/29/22 08:39 Dose: 5 mg Documented By: BREANNA Atorvastatin Calcium (Atorvastatin Calcium 20 Mg Tablet) 20 mg PO DAILY [facility] Last Admin: 03/29/22 07:54 Dose: 20 mg Documented By: BREANNA Clonazepam (Clonazepam 1 Mg Tablet) 2 mg PO BEDTIME PRN PRN Reason: Anxiety Last Admin: 03/28/22 20:17 Dose: 2 mg Documented By: ANTOIC Dextrose (Dextrose 50 % 25 Gm/50 Ml Syringe) 25 gm IVPUSH Q15M PRN; Protocol PRN Reason: per Hypoglycemia Standing Ord. Glucose (Glucose Gel 15 Gm Gel..Gram.) 15 gm PO Q15M PRN; Protocol PRN Reason: per Hypoglycemia Standing Ord. Hydrochlorothiazide (Hydrochlorothiazide 25 Mg Tablet) 25 mg PO DAILY [facility]; Protocol Last Admin: 03/29/22 07:54 Dose: 25 mg Documented By: BREANNA Insulin Human Lispro (Insulin Lispro 100 Unit/Ml 3 Ml Vial) 0 unit SUBCUT QIDACHS [facility]; Protocol Last Admin: 03/29/22 12:05 Dose: 4 unit Documented By: BREANNA Losartan Potassium (Losartan Potassium 50 Mg Tablet) 100 mg PO DAILY [facility]; Protocol Last Admin: 03/29/22 07:54 Dose: 100 mg Documented By: BREANNA Melatonin (Melatonin 3 Mg Tablet) 6 mg PO BEDTIME PRN PRN Reason: Insomnia Omeprazole (Omeprazole 40 Mg Capsule.Dr) 40 mg PO BID@0630,1630 [facility] Last Admin: 03/29/22 06:31 Dose: 40 mg Documented By: ANTOIC Oxycodone HCl (Oxycodone Hcl Immed Release 5 Mg Tablet) 5 mg PO Q6H PRN PRN Reason: Breakthrough Pain Last Admin: 03/28/22 02:33 Dose: 5 mg Documented By: ZHAO Pharmacy Consult (Consult Rx Perform Med Rec) 1 each MISCELLANE ONCE PRN PRN Reason: Consult order Senna (Sennosides 8.6 Mg Tablet) 17.2 mg PO BEDTIME PRN PRN Reason: Constipation Sodium Chloride (0.9 % Sodium Chloride Flush 3 Ml Syringe) 3 ml IVFLUSH QSHIFT [facility] Last Admin: 03/29/22 07:55 Dose: 3 ml Documented By: BREANNA Labs CBC & Chem 7: 03/29/22 06:18 03/29/22 06:18 Labs: Laboratory Results - last 24 hr 03/28/22 03/28/22 03/29/22 15:54 19:46 06:18 MCV 87.0 MCH 28.7 MCHC 33.0 RDW 13.1 Plt Count 242 MPV 10.5 Immature Gran % (Auto) 0.2 Neut % (Auto) 51.4 Lymph % (Auto) 34.8 [place] % (Auto) 10.5 Eos % (Auto) 2.7 Baso % (Auto) 0.4 Lymph # (Auto) 3.3 [place] # (Auto) 1.0 Eos # (Auto) 0.3 Baso # (Auto) 0.0 Abs Immat Gran (auto) 0.02 Absolute Neuts (auto) 4.8 Absolute Nucleated RBC 0.000 Nucleated RBC % (auto) 0.0 Anion Gap Estim Creat Clear Calc Estimated GFR POC Glucose 139 H 211 H Fasting Glucose Calcium Total Bilirubin AST ALT Alkaline Phosphatase Total Protein Albumin 03/29/22 03/29/22 03/29/22 06:18 07:32 11:43 MCV MCH MCHC RDW Plt Count MPV Immature Gran % (Auto) Neut % (Auto) Lymph % (Auto) [place] % (Auto) Eos % (Auto) Baso % (Auto) Lymph # (Auto) [place] # (Auto) Eos # (Auto) Baso # (Auto) Abs Immat Gran (auto) Absolute Neuts (auto) Absolute Nucleated RBC Nucleated RBC % (auto) Anion Gap 18 Estim Creat Clear Calc 77.8 Estimated GFR > 60 POC Glucose 167 H 232 H Fasting Glucose 158 H Calcium 9.4 D Total Bilirubin 0.4 AST 18 ALT 26 Alkaline Phosphatase 70 Total Protein 7.0 Albumin 4.1 Assessment and Plan (1) Headache: Status: Acute (2) HTN (hypertension): Status: Acute (3) DMII (diabetes mellitus, type 2): Status: Acute Plan 72-year-old female with a past medical history of hypertension, hyperlipidemia, diabetes presented to the hospital today with a chief complaint of headache/visual changes 1. Headache with visual changes( symptoms resolved) - workup thus far negative...repeat CT negative - MRI in a.m. - likely complex migraine - continue Fioricet p.r.n. 2. Hypertension? -acceptable control on current therapies - adjust as indicated 3.DMII -acceptable control -lispro correctional scale Full Code Lovenox will require ongoing hospitalization to complete workup /continue telemetry for likely complex migraine Quality Stroke Does the patient have a stroke diagnosis?: No VTE Prior VTE?: No VTE Risk Level:: Medical - moderate - high VTE Device Contraindication: Treatment Not Indicated VTE Drug Contraindication: N/A - Med Ordered
[2022-03-29 16:21] LABS: Glucose, Whole Blood 153 mg/dL (60-115)
[2022-03-29 20:35] LABS: Glucose, Whole Blood 136 mg/dL (60-115)
[2022-03-30 04:00] VITALS: BP 142/66; PULSE 81; RESP 20; TEMP 36.5; O2SAT 98
[2022-03-30] MEDS: Omeprazole 40 MG CAPSULE.DR PO (05:58)
[2022-03-30 07:38] LABS: Glucose, Whole Blood 154 mg/dL (60-115)
[2022-03-30] MEDS: amLODIPine Besylate 5 MG TABLET PO (07:51)
[2022-03-30] MEDS: Atorvastatin Calcium 20 MG TABLET PO (07:51)
[2022-03-30] MEDS: Losartan Potassium 50 MG TABLET 100 MG PO (07:51)
[2022-03-30] MEDS: Insulin Lispro 100 UNIT/ML 3 ML VIAL SUBCUT (07:51)
[2022-03-30] MEDS: hydroCHLOROthiazide 25 MG TABLET PO (07:51)
[2022-03-30] MEDS: 0.9 % Sodium Chloride Flush 3 ML SYRINGE IVFLUSH (07:54)
[2022-03-30 08:00] VITALS: BP 133/67; PULSE 79; RESP 20; TEMP 36.7; O2SAT 92
--- NOTE | 2022-03-30 08:23 | P.CDIC_ITS ---
CDI Concurrent Query Documentation Clarification: PHYSICIAN'S DOCUMENTATION REQUEST Date of Query: 03/30/22822 Patient Name: Janna Oneal Admit Date: 03/27/22 Dear Doctor, A review of the medical record indicates additional documentation may be needed. Please review below and update the documentation accordingly. Clinical Indicators: Risk Factors/Clinical Indicators/Treatments Nursing notes height and weight: BMI 34.0 5' 4 in height. Obese class I If possible, please provide an associated diagnosis related to the abnormal BMI, such as: For a BMI >= 30: * Overweight * Obesity * Due to excess calories * Drug induced * Due to other cause Use of terms such as suspected, likely, concern for, or probable (associated with a specific diagnosis that is being evaluated, monitored, or treated as if it exists) are acceptable and can be coded in the inpatient setting, when documented at the time of discharge. Thank you, Lise Shaver [facility],CDIS Extension: [phone] Please use your independent medical judgment in providing your response. THIS QUERY IS PART OF THE PERMANENT MEDICAL RECORD Provider Response: Other Other Diagnosis: overweight due to excess calories
[2022-03-30 11:26] LABS: Glucose, Whole Blood 145 mg/dL (60-115)
[2022-03-30 11:38] VITALS: BP 113/61; PULSE 77; RESP 20; TEMP 36.6; O2SAT 94
--- NOTE | 2022-03-30 15:30 | PM.DS ---
DS: Providers Provider Date of Service: 03/30/22 Date of admission: 03/27/22 06:06 Date of discharge: 03/30/22 Primary care physician: Kasi Rivas DO, MD DS: Diagnosis Discharge Diagnosis (1) Headache: Status: Acute (2) HTN (hypertension): Status: Acute (3) DMII (diabetes mellitus, type 2): Status: Acute (4) Blurred vision: Status: Acute (5) Acute confusion: Status: Acute (6) Word finding difficulty: Status: Acute DS: Summary Hospital Course Hospital Course: 72-year-old female with a past medical history of hypertension, hyperlipidemia, diabetes presented to the hospital with a chief complaint of headache/blurry vision.? Reported headache on the right side of the head, and blurry vision the right eye.? Symptoms resolved after she came to the ER.? Denies any numbness tingling or focal weakness.? Denies any falls or trauma.? Per family patient has become very forgetful along with word finding difficulties.? Denies any signs of infection, denies any fever chills cough or sputum production, GI symptoms.? Hospital Course admitted to telemetry where monitor failed to demonstrate dysrhythmias. Head CT and carotid Doppler both failed to show any acute abnormalities. Discussed with Neurology who felt this was a complex migraine. Over the course of 24-48 hours all the symptoms including blurred vision acute confusion and word-finding difficulty all resolved. At this point in time she will be sent home with [facility] for headache follow-up with her PCP who can refer her to Neurology for further workup if indicated Time Spent with Patient Time attestation: Total time spent providing and/or coordinating discharge services: Discharge coordination time: Greater than 30 minutes Quality: Safe Use of Opioids Does Pt have an Active Cancer Diagnosis on the Problem List?: No Quality: Stroke Does the patient have a stroke diagnosis?: No Physical Exam Vital Signs: Vital Signs: Last Vital Signs Temp 97.9 F 03/30/22 11:38 Pulse 77 03/30/22 11:38 Resp 20 03/30/22 11:38 BP 113/61 03/30/22 11:38 Pulse Ox 94 03/30/22 11:38 O2 Del Method 03/30/22 11:38 BMI result Body Mass Index 34.0 Const: Other: no acute distress Resp: Other: clear to auscultation bilaterally no rales rhonchi or wheezes Cardio: Other: no S4; positive S1-S2; no S3 murmurs rubs or gallops GI: Other: soft nontender nondistended normoactive bowel sounds Neuro: Other: cranial nerves 2-12 grossly intact as tested. Motor is 5/5 all extremities. Sensation is intact. Cognition appropriate Extrem: Other: no edema bilateral DS: Data Data Completed and Pending Labs on day of discharge: Laboratory Results - last 24 hr 03/29/22 03/29/22 03/30/22 16:11 20:30 07:33 POC Glucose 153 H 136 H 154 H 03/30/22 11:21 POC Glucose 145 H Discharge Plan Discharge Patient Disposition: Home, Self-Care Discharge Diagnosis: complex migraine Referrals: Kasi Rivas DO, MD [Primary Care Provider] - 1 Week Discharge Medications: New amlodipine 5 mg Tablet 5 mg PO DAILY Qty: 30 0RF Protocol: Hold for SBP< HOLD for SBP < : 90 [id number] 50-325-40 mg Tablet 1 tab PO Q4H PRN (Reason: Headache) Qty: 30 0RF Continued clonazepam 1 mg tablet 2 tab PO BEDTIME PRN (Reason: Anxiety) omeprazole 40 mg capsule,delayed release(DR/EC) 1 cap PO BID simvastatin 40 mg tablet 1 tab PO DAILY metformin 1,000 mg tablet 1 tab PO BID ibuprofen 600 mg tablet 1 tab PO TID PRN (Reason: Mild Pain (Scale Score 1-4)) losartan 100 mg tablet 1 tab PO DAILY hydrochlorothiazide 25 mg tablet 1 tab PO DAILY Discharge Orders: Discharge Order (Routine); Ordered 03/30/22 Ordered By: Jovany Isidro Diet: Advance to usual diet Activity on Discharge: As tolerated Stand Alone Forms: Patient Portal Discharge page Care Plan Goals: Use Fioricet for headache as needed Health Concerns: follow-up with PCP as scheduled Plan of Treatment: PCP can book MRI and follow-up with Dr. [place] Assessment: see discharge summary
[2022-03-30 15:39] VITALS: BP 130/72; PULSE 83; RESP 16; TEMP 36.6; O2SAT 95
--- NOTE | 2022-03-30 15:43 | MHC.CM.PN ---
PT MEDICALLY CLEARED FOR D/C HOME SELF-CARE, PT TO ARRANGE TRANSPORT
[2022-03-31 00:11] LABS: Glucose, Whole Blood 195 mg/dL (60-115)
== END 2022-03-30 17:02 | disposition home or self-care (01) ==
LOC: HO.ED 03-27 00:46 → HO.EDOVER 03-27 06:12 → HO.IMC 03-27 16:59
PROVIDERS: Hospitalist; Admitting Provider Hospitalist; Emergency Provider Emergency Medicine Emergency Medical Services; PCP Internal Medicine; Visit Provider Hospitalist
DX: G43.809 Other migraine, not intractable, without status migrainosus (principal); I10 Essential (primary) hypertension; H53.8 Other visual disturbances; R41.0 Disorientation, unspecified; R47.89 Other speech disturbances; E11.9 Type 2 diabetes mellitus without complications; Z20.822 Contact with and (suspected) exposure to COVID-19; E78.5 Hyperlipidemia, unspecified; Z90.49 Acquired absence of other specified parts of digestive tract; Z87.891 Personal history of nicotine dependence; Z79.899 Other long term (current) drug therapy; Z79.4 Long term (current) use of insulin; Z79.02 Long term (current) use of antithrombotics/antiplatelets
CPT/HCPCS: 36415; 70450; 80048; 80053; 80061; 80076; 82947; 84484; 85025; 85610; 85652; 85730; 87635; 93005; 93880; 96361; 96374; 96375; 96376; 99219; 99285; J1885; J2270; J2405